=== PATIENT | male | born 1975 | race Caucasian/White ===

== ENCOUNTER 2017-03-15 20:00 | Emergency (ER) | payer OTHER ==
[~2017-03-15] VITALS: Ht 193 cm; Wt 95.5 kg
[2017-03-15] MEDS ORDERED: methylPREDNISolone SOD SUCC PF 125 MG/2 ML VIAL. IV ONE (20:30)
[2017-03-15 21:03] LABS: BASO % 1 % (0-3); EOS # 0.7 x10^3/uL (0.0-0.7); EOS % 9 % (0-3); HEMATOCRIT 44.5 % (39.0-53.0); HEMOGLOBIN 14.7 g/dL (13.0-17.5); LYMPH # 2.1 x10^3/uL (1.0-4.8); LYMPH % 27 % (24-48); MEAN CORPUSCULAR HEMOGLOBIN 29 pg (25-35); MEAN CORPUSCULAR HGB CONC 33 g/dL (31-37); MEAN CORPUSCULAR VOLUME 88 fL (79-100); MONO # 0.5 x10^3/uL (0.0-1.1); MONO % 6 % (0-9); NEUT # 4.5 x10^3uL (1.8-7.7); NEUT % 57 % (31-73); PLATELET COUNT 262 x10^3/uL (140-400); RED BLOOD COUNT 5.08 x10^6/uL (4.30-5.70); RED CELL DISTRIBUTION WIDTH 13.7 % (11.5-14.5); WHITE BLOOD COUNT 7.9 x10^3/uL (4.0-11.0)
[2017-03-15 21:07] LABS: CALCIUM 8.9 mg/dL (8.5-10.1); CREATININE 1.1 mg/dL (0.7-1.3); GFR 74.5; POTASSIUM 3.6 mmol/L (3.5-5.1)
[2017-03-15 22:12] LABS: CLARITY,URINE CLEAR; COLOR,URINE YELLOW; GLUCOSE,URINE NEG (NEG)
[2017-03-15 22:13] LABS: BACTERIA,URINE 0 /HPF (0-FEW); BILIRUBIN,URINE NEG (NEG); NITRITE,URINE NEG (NEG); RBC,URINE 0 /HPF (0-2); UROBILINOGEN,URINE 0.2 mg/dL (0.2 mg/dL)
[2017-03-15 22:16] LABS: HYALINE CASTS, URINE OCC /HPF
--- NOTE | 2017-03-15 22:33 | RAD ---
Testicular ultrasound dated 03/15/2017. No comparison available. Clinical indication: Penile swelling. Evaluate for vessel occlusion. FINDINGS: Both testicles are homogeneous in echogenicity. No focal testicular mass. Normal color Doppler flow and waveforms to both testicles. Epididymides are unremarkable. Tiny hydrocele on the right. No left-sided hydrocele or varicocele. No significant scrotal wall thickening. Images of the penis were obtained normal-appearing blood flow. No fluid collection or mass is identified. IMPRESSION: 1. No acute sonographic abnormality. Normal penile blood flow. Electronically signed by: Omid Coreas MD (03/15/2017 10:30 PM) [id number]
--- NOTE | 2017-03-15 22:49 | PHYS DOC ---
General Chief Complaint: TESTICULAR PAIN OR INJURY Stated Complaint: PENIS SWELLING Time Seen by MD: 20:23 Source: patient Exam Limitations: no limitations Problems: History of Present Illness Initial Comments Patient is a 41-year-old male who comes to the ED complaining of penile swelling. Patient states that for the past 24 hours he's had initially imaging of the penis and now has swelling. Initially he thought he might have jock itch however he's had no redness dryness or scaling of the inguinal region. He said no testicular symptoms but over the last 24 hours has had swelling of the soft tissues of his penis. The penis although swollen is not an erection no priapism patient denies any pain only symptom is itching. He has no dysuria frequency hesitancy or discharge. Denies any penile trauma and is and monogamous refuses to entertain the possibility of STI. No fever chills sweats or myalgias no bowel or bladder symptoms otherwise. No insect bites or new known exposures no cough hoarseness wheeze or feeling of lump in throat. No pre-arrival treatment patient is normally healthy and his spouse joins him in the exam room after she gets and registered. Timing/Duration: yesterday Severity/Quality: moderate Activities at Onset: none Prior Genitourinary Problems: none Sexual [place] History: less than 2 months ago, single partner Modifying Factors: improves with other Associated Symptoms: other Allergies: Coded Allergies: acetaminophen (Verified Allergy, Unknown, 03/15/17) propoxyphene (Verified Allergy, Unknown, 03/15/17) Past Medical History Medical History: no pertinent history Surgical History: noncontributory Social History Smoker: non-smoker Alcohol: occasionally Drugs: none Review of Systems Constitutional: denies chills, denies diaphoresis, denies fever Respiratory: denies cough, denies shortness of breath Cardiovascular: denies chest pain, denies palpitations Gastrointestinal: denies abdominal pain, denies nausea, denies vomiting Genitourinary: see HPI, denies flank pain, denies hematuria Musculoskeletal: denies back pain, denies joint swelling, denies neck pain Skin: see HPI Psychiatric/Neurological: denies headache, denies numbness, denies paresthesia Physical Exam General Appearance: WD/WN, no apparent distress Neck: non-tender, supple Cardiovascular/Respiratory: normal peripheral pulses, no respiratory distress Gastrointestinal: non tender, soft, other (testicular exam is normal there are no skin changes there is no swelling or tenderness. There is marked swelling of the penile shaft exclusively, tissues are soft there are no skin changes no tenderness discharge or other abnormalities.) Back: no CVA tenderness, no vertebral tenderness Extremities: non-tender, normal inspection Neurologic/Psychiatric: double end trimmer II-XII nml as tested, alert, oriented x 3 Skin: normal color, warm/dry Orders, Labs, Meds Urinalysis is unremarkable, CBC positive for eosinophilia otherwise normal. PATIENT: FRANCISCO J DE OLIVEIRA ACCOUNT: [id number] : 1975 LOCATION: ER AGE: 41 SEX: M EXAM STATUS: REG ER ORD. PHYSICIAN: ASHLY BRUNO DO REASON: penile swelling eval for vessel occlusion vs other PROCEDURE: TESTICULAR/SCROTUM Testicular ultrasound dated 03/15/2017. No comparison available. Clinical indication: Penile swelling. Evaluate for vessel occlusion. FINDINGS: Both testicles are homogeneous in echogenicity. No focal testicular mass. Normal color Doppler flow and waveforms to both testicles. Epididymides are unremarkable. Tiny hydrocele on the right. No left-sided hydrocele or varicocele. No significant scrotal wall thickening. Images of the penis were obtained normal-appearing blood flow. No fluid collection or mass is identified. IMPRESSION: 1. No acute sonographic abnormality. Normal penile blood flow. Electronically signed by: Omid Coreas MD (03/15/2017 10:30 PM) [facility] DICTATED AND SIGNED BY: OMID COREAS MD DATE: 03/15/172221 CC: PCP,NO; ASHLY BRUNO DO ~ Solu-Medrol 125 mg IV given on patient arrival. I rechecked the patient once results were all completely. He states that the itching is improved and swelling may be down somewhat he says it's difficult to tell. He denies any new or progressive symptoms his vital signs remained normal and overall his ED workup has been reassuring. Because of steroid response and eosinophilia will continue to treat as an allergy however the patient is advised she needs to follow-up with his doctor tomorrow morning. He reports he doesn't have one so I' ll have him follow up walking clinic expressed agreement and understanding see departure instructions. Departure Time of Disposition: 22:48 Disposition: 01 HOME, SELF-CARE Diagnosis: penile swelling with eosinophilia (?allergy) Condition: STABLE Patient Instructions: Edema, [id number] Additional Instructions: Rest, no strenuous activity. Avoid intercourse and sexual activity until symptoms resolve. OTC pepcid twice daily while taking prednisone. Rx: hydroxyzine, prednisone Sedation precautions with hydroxyzine, no driving/operating machinery. Off work tomorrow. You will need to follow up with a doctor tomorrow for recheck. If no symptomatic improvement will need urology referral. As you do not have a doctor, follow up at walk in clinic tomorrow for recheck and urology referral if necessary. Return to ED with new or changing symptoms. ASHLY BRUNO DO Mar 15, 2017 22:49
[2017-03-15] MEDS ORDERED: HYDR25TA PO (22:51)
[2017-03-15] MEDS ORDERED: PRED20TA PO (22:51)
[2017-03-15] MEDS ORDERED: predniSONE 20 MG TABLET PO ONE (23:00)
[2017-03-15] MEDS ORDERED: FAMOTIDINE 20 MG TABLET PO ONE (23:00)
[2017-03-15] MEDS ORDERED: hydrOXYzine HCL 25 MG TABLET PO ONE (23:00)
[2017-03-16 00:08] VITALS: BP 123/61
== END 2017-03-16 00:01 | disposition home or self-care (01) ==
LOC: ER 20:00
DX: N48.89 Other specified disorders of penis (principal); D72.1 Eosinophilia; Z88.6 Allergy status to analgesic agent; Z88.8 Allergy status to other drugs, medicaments and biological substances
CPT/HCPCS: 36415; 76870; 80048; 81001; 85025; 96374; 99285; J2930; J7512

== ENCOUNTER 2021-05-31 11:35 | Emergency (ER) | payer OTHER ==
[~2021-05-31] VITALS: Ht 193 cm; Wt 95.5 kg
[~2021-05-31 11:35] MED LIST: HYDR25TA PO; PRED20TA PO
--- NOTE | 2021-05-31 12:40 | RAD ---
XR CHEST 2V CLINICAL INDICATIONS: Reason: left side chest wall pain, fall today / Spl. Instructions: / History: COMPARISON: None available. Findings: No acute lung infiltrate or pleural effusion or pulmonary edema or lung mass or pneumothora x is seen. The heart size, pulmonary vasculature, mediastinum and both tiera are unremarkable. The os seous structures appear intact. IMPRESSION: No acute radiographic abnormality is seen. Electronically signed by: Dionte Soto MD (05/31/2021 12:38 PM) [id number]
--- NOTE | 2021-05-31 13:08 | PHYS DOC ---
Past History Past Medical History: No Pertinent History (INA TOBAR APRN) Past Surgical History: Other Additional Past Surgical Histo: right foot (INA TOBAR APRN) Alcohol Use: Rarely Drug Use: None (INA TOBAR APRN) General Adult EDM: Chief Complaint: RIB PAIN HPI: HPI: Patient is a 45-year-old male presents with left-sided rib pain. 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 Patient states the pain is worse with deep breathing. Patient is rating pain 8/10. Denies taking anything at home for discomfort. Denies hitting his head. Denies blood thinners. Denies health history. (INA TOBAR APRN) Review of Systems: Review of Systems: ROS At least 10 ROS systems have been reviewed and are negative except as documented in the HPI. General: Negative except as outlined in HPI above. Skin: Negative except as outlined in HPI above. HEENT: Negative except as outlined in HPI above. Neck: Negative except as outlined in HPI above. Respiratory: Negative except as outlined in HPI above.. Cardiovascular: Negative except as outlined in HPI above. Abdomen: Negative except as outlined in HPI above. : Negative except as outlined in HPI above. Back/MSK: Negative except as outlined in HPI above. Neuro: Negative except as outlined in HPI above. Psych: Negative except as outlined in HPI above. (INA TOBAR APRN) Allergies: Allergies: Allergies Coded Allergies Type Severity Reaction Last Updated Verified propoxyphene Allergy Unknown 03/15/17 Yes (INA TOBAR APRN) Physical Exam: PE: Constitutional: Well developed, well nourished, no acute distress, non-toxic appearance. [] HENT: Normocephalic, atraumatic, bilateral external ears normal, oropharynx moist, no oral exudates, nose normal. [] Eyes: PERRLA, EOMI, conjunctiva normal, no discharge. [] Neck: Normal range of motion, no tenderness, supple, no stridor. [] Cardiovascular:Heart rate regular rhythm, no murmur [] Lungs & Thorax: Bilateral breath sounds clear to auscultation [] Abdomen: Bowel sounds normal, soft, no tenderness, no masses, no pulsatile masses. [] Skin: Warm, dry, no erythema, no rash. [] Back: No tenderness, no CVA tenderness. [] Extremities: No tenderness, no cyanosis, no clubbing, ROM intact, no edema. [] Neurologic: Alert and oriented X 3, normal motor function, normal sensory function, no focal deficits noted. [] Psychologic: Affect normal, judgement normal, mood normal. [] (INA TOBAR APRN) Current Patient Data: Vital Signs: Vital Signs Date Time Temp Pulse Resp B/P (MAP) Pulse Ox O2 Delivery O2 Flow Rate FiO2 05/31/21 11:42 97.9 83 20 131/80 (97) 99 Room Air (INA TOBAR APRN) EKG: EKG: [] (INA TOBAR APRN) Radiology/Procedures: Radiology/Procedures: []XR CHEST 2V CLINICAL INDICATIONS: Reason: left side chest wall pain, fall today / Spl. Instructions: / History: COMPARISON: None available. Findings: No acute lung infiltrate or pleural effusion or pulmonary edema or lung mass or pneumothorax is seen. The heart size, pulmonary vasculature, mediastinum and both tiera are unremarkable. The osseous structures appear intact. IMPRESSION: No acute radiographic abnormality is seen. Electronically signed by: Dionte Soto MD (05/31/2021 12:38 PM) [id number] EXAM: CT Abdomen and Pelvis without IV contrast CLINICAL HISTORY: fall, left chest wall/luq abd pain COMPARISON: none TECHNIQUE: Helical CT of the abdomen and pelvis without intravenous contrast. Axial, coronal and sagittal reformatted images were generated. PQRS compliance statement - One or more of the following individualized dose reduction techniques were utilized for this study: 1. Automated exposure control 2. Adjustment of the mA and/or kV according to patient size 3. Use of iterative reconstruction technique FINDINGS: Lack of intravenous contrast limits evaluation of solid organs, vasculature, and lymph nodes. Lower chest: Linear opacity lingula and linear and patchy groundglass airspace opacities bilateral lower lobes likely possibly atelectasis or developing consolidative process such as pneumonia. Abdomen and Pelvis: No focal liver lesion. Gallbladder is normal. No biliary ductal dilatation. Pancreas is unremarkable. Spleen is normal in appearance. No focal renal lesion. No hydronephrosis. No hydroureter. Bladder is unremarkable. No renal tract calculus. Moderate colonic stool content. Appendix is normal. No small or large bowel dilatation. No bowel obstruction. Colonic diverticulosis without CT evidence for acute diverticulitis. No abdominal or pelvic ascites. No abdominal or pelvic lymphadenopathy. Aorta is normal in caliber. Small fat-containing periumbilical hernia. Bones: Right L5 pars defect chronic appearance. No spondylolisthesis. T11-12 severe disc height loss. No acute fracture. IMPRESSION: No renal tract calculus. Moderate colonic stool content. No bowel obstruction. Trace right periumbilical fat-containing hernia. Colonic diverticulosis without CT evidence for acute diverticulitis. Electronically signed by: Roberto Mirza MD (05/31/2021 1:37 PM) [id number] (INA TOBAR APRN) Heart Score: C/O Chest Pain: No Risk Factors: Risk Factors: DM, Current or recent (<one month) smoker, HTN, HLP, family history of CAD, obesity. Risk Scores: Score 0 - 3: 2.5% MACE over next 6 weeks - Discharge Home Score 4 - 6: 20.3% MACE over next 6 weeks - Admit for Clinical Observation Score 7 - 10: 72.7% MACE over next 6 weeks - Early Invasive Strategies (INA TOBAR APRN) Course & Med Decision Making: Course & Med Decision Making Pertinent Labs and Imaging studies reviewed. (See chart for details) [] 45-year-old male presents with left-sided rib pain. X-ray showed no acute abnormality. Due to patient's pain level, CT abdomen pelvis. Patient given [address] abdomen pelvis is unremarkable. Discussed results with patient. Advised patient he may be sore and to take Motrin and Tylenol at home for pain. Sending patient home with pain medication until he can follow-up with PCP. Patient should follow-up with his PCP in the next few days. Discussed return prec autions in length. Patient verbalized understanding of discharge instructions. Patient is hemodynamically stable upon disposition (INA TOBAR APRN) Dragon Disclaimer: Dragon Disclaimer: This electronic medical record was generated, in whole or in part, using a voice recognition dictation system. (INA TOBAR APRN) Attending Co-Sign The patient was seen and interviewed as well as examined at the bedside. The chart was reviewed. The case was discussed. Agree with the plan of care. (ANA HUERTAS DO) Departure Departure: Impression: Primary Impression: Fall Qualified Codes: W19.XXXA - Unspecified fall, initial encounter Additional Impression: Rib pain Disposition: HOME / SELF CARE / HOMELESS Condition: STABLE Referrals: PCP,NO (PCP) Patient Instructions: Rib Contusion Additional Instructions: You are seen in the emergency room after a fall. X-ray and CT of your abdomen pelvis were negative for acute injuries. You are going to be sore. Make sure you are taking Motrin at home for discomfort. I am sending you with some hydrocodone to help with pain relief as well. Please follow-up with your PCP in the next few days. Return to emergency room if you have worsening symptoms or concerns. EMERGENCY DEPARTMENT GENERAL DISCHARGE INSTRUCTIONS Thank you for coming to [facility] (ED) today and trusting us with you care. We trust that you had a positivie experience in our Emergency Department. If you wish to speak to the department management, you may call the director at [phone]. YOUR FOLLOW UP INSTRUCTIONS ARE FOLLOWS: 1. Do you have a private Doctor? If you do not have a private doctor, please ask for a resource list of physicians or clinics that may be able to assist you with follow up care. 2. The Emergency Physician has interpreted your x-rays. The X-Ray specialist will also review them. If there is a change in the findings, you will be notified in 48 hours when at all possible. 3. A lab test or culture has been done, your results will be reviewed and you will be notified if you need a change in treatment. ADDITIONAL INSTRUCTIONS AND INFORMATION: 1. Your care today has been supervised by a physician who is specially trained in emergency care. Many problems require more than one evaluation for a complete diagnosis and treatment. We recommend that you schedule your follow up appointment as recommended to ensure complete treatment of you illness or injury. If you are unable to obtain follow up care and continue to have a problem, or if your condition worsens, we recommend that you return to the ED. 2. We are not able to safely determine your condition over the phone nor are we able to give sound medical advice over the phone. For these safety reasons, if you call for medical advice we will ask you to come to the ED for further evaluation. 3. If you have any questions regarding these discharge instructions please call the ED at [phone]. SAFETY INFORMATION: In the interest of safety, wellness, and injury prevention; we encourage you to wear your sealbelt, if you smoke; quite smoking, and we encourage family to use a protective helmet for bicycling and other sporting events that present an increased risk for head injury. IF YOUR SYMPTOMS WORSEN OR NEW SYMPTOMS DEVELOP, OR YOU HAVE CONCERNS ABOUT YOUR CONDITION; OR IF YOUR CONDITION WORSENS WHILE YOU ARE WAITING FOR YOUR FOLLOW UP APPOINTMENT; EITHER CONTACT YOUR PRIMARY CARE DOCTOR, THE PHYSICIAN WHOSE NAME AND NUMBER YOU WERE GIVEN, OR RETURN TO THE ED IMMEDIATELY. Scripts Hydrocodone Bit/Acetaminophen (HYDROCODONE-APAP 5-325 ) 1 Each Tablet 0.5-1 TAB PO PRN Q6HRS PRN for PAIN for 3 Days, #12 TAB 0 Refills Prov: INA TOBAR APRN 05/31/21 INA TOBAR APRN May 31, 2021 13:08 ANA HUERTAS DO Jun 02, 2021 10:17
[2021-05-31] MEDS ORDERED: IBUPROFEN 600 MG TABLET. PO ONE (13:15)
--- NOTE | 2021-05-31 13:39 | RAD ---
EXAM: CT Abdomen and Pelvis without IV contrast CLINICAL HISTORY: fall, left chest wall/luq abd pain COMPARISON: none TECHNIQUE: Helical CT of the abdomen and pelvis without intravenous contrast. Axial, coronal and sagi ttal reformatted images were generated. PQRS compliance statement - One or more of the following individualized dose reduction techniques wer e utilized for this study: 1. Automated exposure control 2. Adjustment of the mA and/or kV according to patient size 3. Use of iterative reconstruction technique FINDINGS: Lack of intravenous contrast limits evaluation of solid organs, vasculature, and lymph nodes. Lower chest: Linear opacity lingula and linear and patchy groundglass airspace opacities bilateral lower lobes lik paula possibly atelectasis or developing consolidative process such as pneumonia. Abdomen and Pelvis: No focal liver lesion. Gallbladder is normal. No biliary ductal dilatation. Pancreas is unremarkable. Spleen is normal in appearance. No focal renal lesion. No hydronephrosis. No hydroureter. Bladder is unremarkable. No renal tract calculus. Moderate colonic stool content. Appendix is normal. No small or large bowel dilatation. No bowel obst ruction. Colonic diverticulosis without CT evidence for acute diverticulitis. No abdominal or pelvic ascites. No abdominal or pelvic lymphadenopathy. Aorta is normal in caliber. Small fat-containing periumbilical hernia. Bones: Right L5 pars defect chronic appearance. No spondylolisthesis. T11-12 severe disc height loss. No acu te fracture. IMPRESSION: No renal tract calculus. Moderate colonic stool content. No bowel obstruction. Trace right periumbilical fat-containing hernia. Colonic diverticulosis without CT evidence for acute diverticulitis. Electronically signed by: Roberto Mirza MD (05/31/2021 1:37 PM) [email or web address]
[2021-05-31] MEDS ORDERED: HYDR-2155 PO (14:01)
[2021-05-31 14:17] VITALS: BP 116/76
== END 2021-05-31 14:18 | disposition home or self-care (01) ==
LOC: ER 11:35
DX: R07.81 Pleurodynia (principal); Z88.8 Allergy status to other drugs, medicaments and biological substances; W18.09XA Striking against other object with subsequent fall, initial encounter; Y93.89 Activity, other specified; Y92.89 Other specified places as the place of occurrence of the external cause; Y99.8 Other external cause status
CPT/HCPCS: 71046; 74176; 99284